=== PATIENT | male | born 1955 | race Caucasian/White ===

== ENCOUNTER 2019-10-25 08:50 | Outpatient (RCR) | payer BC, OTHER ==
[~2019-10-25] VITALS: Ht 186 cm; Wt 98.6 kg
[~2019-10-25 08:50] MED LIST: AMLO10TA7 PO; ASP325TEC PO; CLOP75TA PO; HYDR25TA4 PO; OLME40TA14 PO; OLME40TA18 PO; PNT40TEC PO; SIMV40TA2 PO; SIMV40TA25 PO
== END 2019-10-25 16:14 | disposition home or self-care (01) ==
LOC: PREOP 08:50
PROVIDERS: ATTEND Internal Medicine
DX: Z01.818 Encounter for other preprocedural examination (principal); Z11.59 Encounter for screening for other viral diseases
CPT/HCPCS: 87635

== ENCOUNTER 2019-10-29 09:23 | Day surgery (SDC) | payer BC, OTHER ==
--- NOTE | 2019-10-22 10:51 | HISTORY AND PHYSICAL ---
DATE OF SERVICE: COLONOSCOPY HISTORY AND PHYSICAL HISTORY: The patient is a 64-year-old white male seen for followup of hypertension and hyperlipidemia. He was due for screening colonoscopy as well. He is not aware of a family history of colon cancer, although his dad did have colon polyps. He reports that he has been feeling well. He has some gastritis sounding symptoms several months ago, but they resolved. He denied bright red blood per rectum or melena and has had no bowel habit change and denies any abdominal pain. He has had no nausea and continues to exercise and is maintaining a significant amount of weight loss over 40 pounds from his high. It is high several years ago. His ultimate goal is to get down to 200 pounds and currently weighing 217.8, down 1.2 pounds from office visit 2 months ago. He has a past history of hypertension and hyperlipidemia, significantly improved on weight loss. He has a past history of tobaccoism with 30 plus pack year smoking history, but quit 9 years ago. PHYSICAL EXAMINATION: GENERAL: Reveals a white male, appeared to be in no acute distress. VITAL SIGNS: Weight 217.8 pounds, blood pressure 120/70, heart rate 70 and regular. HEENT: Unremarkable. Mallampati II pharyngeal configuration. CHEST: Clear to auscultation. CARDIOVASCULAR: Revealed a regular rate and rhythm without murmur, S3 or S4. ABDOMEN: Soft, supple without mass, organomegaly or tenderness. EXTREMITIES: Reveal no cyanosis, clubbing or edema. RECTAL: Deferred at the time of colonoscopy set up for 10/29/2019. ASSESSMENT AND PLAN: 1. Hypertension, under good control aided by weight loss and smoking cessation. 2. Hyperlipidemia has been under good control on statin therapy. Last lipid panel 6 months ago revealed a total cholesterol of 142 and HDL of 34, triglyceride level of 139 and LDL of 84. He had a chemistry panel and PSA, which were unremarkable on 10/18/2019. The patient was set up for screening colonoscopy on 10/29/2019. Prep instructions with the Suprep kit were given and questions were answered. The patient is scheduled for followup in 6 months. We will obtain a repeat PSA and lipid panel at that time. Job ID: [id number] DocumentID: [id number] Dictated Date: 10/21/2019 16:13:17 Breakfast Manager Date: 10/21/2019 16:55:52 Dictated By: RAY MOSES MD
[~2019-10-29] VITALS: Ht 186 cm; Wt 98.6 kg
[2019-10-29] VITALS (14 sets, daily range): BP systolic 114–130; BP diastolic 60–70
[2019-10-29] MEDS ORDERED: D5 LR IV SOLUTION 1,000 ML IV STA (09:32)
[2019-10-29] MEDS ORDERED: fentaNYL INJECTION 100 MCG/2 ML AMP IVP ONE (09:45)
[2019-10-29] MEDS ORDERED: MIDAZOLAM 5 MG/5 ML (VERSED) VIAL IV PRN (09:45)
[2019-10-29] MEDS ORDERED: LIDOCAINE JELLY 2% 6 ML SYRINGE MM PRN (09:45)
--- OUTSIDE RECORDS SUMMARY | 2019-10-29 10:08 | XMS REPORT | Continuity of Care Document ---
Author Organization Unknown Address Unknown Phone Unavailable Allergies Active Description Code Type Severity Reaction Onset Reported/Identified Relationship to Patient Clinical Status Yes ENVIRONMENTAL ENVIRONMENTAL Unknown N/A 09/30/2010 Medications There is no data. Problems Date Dx Coded Attending Type Code Diagnosis Diagnosed By 05/15/1613 RAY MOSES MD Ot Z01.818 ENCOUNTER FOR OTHER PREPROCEDURAL EXAMIN 05/15/1613 RAY MOSES MD Ot Z11. 59 ENCOUNTER FOR SCREENING FOR OTHER VIRAL Procedures There is no data. Results Test Result Range Coronavirus SARS-CoV-2 SO 2018 - 0 13:15 Coronavirus Ab [Units/volume] in Serum Negative Negative Encounters ACCT No. Visit Date/Time Discharge Status Pt. Type Provider Facility Loc./Unit Complaint [id number] 10/25/2019 08:50:00 020 16:14:00 DIS Outpatient RAY MOSES MD [facility] PREOP COLONOSCOPY [id number] 07/27/2013 07:15:00 014 10:30:00 DIS Outpatient [id number] 07/22/2013 07:19:00 014 23:59:59 CLS Outpatient [id number] 10/29/2019 10:30:00 P EN Preadmit RAY MOSES MD [facility] ENDO SCREENING
[2019-10-29] MEDS ORDERED: fentaNYL INJECTION 100 MCG/2 ML AMP ONE (10:32)
[2019-10-29] MEDS ORDERED: LIDOCAINE JELLY 2% 6 ML SYRINGE ONE (10:32)
[2019-10-29] MEDS ORDERED: MIDAZOLAM 5 MG/5 ML (VERSED) VIAL ONE (10:32)
--- NOTE | 2019-10-29 10:41 | Pre-Op Note & Conscious Sedat ---
Pre-Operative Progress Note H&P Reviewed The H&P was reviewed, patient examined and no changes noted. Date H&P Reviewed: October 29, 2019 Time H&P Reviewed: 10:41 Conscious Sedation Pre-Proced ASA Score 2 For ASA 3 and 4: Consider anesthesia and medical clearance. Also, for patients with a history of failed moderate sedation consider anesthesia. Airway Lungs Heart ASA score ASA 1: a normal healthy patient ASA 2: a patient with a mild systemic disease (mid diabetes, controlled hypertension, obesity ASA 3: a patient with a severe systemic disease that limits activity (angina, COPD, prior Myocardial infarction) ASA 4: a patient with an incapacitating disease that is a constant threat to life (CHF, renal failure) ASA 5: a moribund patient not expected to survive 24 hrs. (ruptured aneurysm) ASA 6: a declared brain- patient whose organs are being harvested. For emergent operations, add the letter E after the classification Mallampati Classification Grade 2 Sedation Plan Analgesia, Amnesia, Plan communicated to team members, Discussed options with patient/fam, Discussed risks with patient/fam The patient is an appropriate candidate to undergo the planned procedure, sedation, and anesthesia. The patient immediately re-assessed prior to indication. RAY MOSES MD October 29, 2019 10:41
[2019-10-29] MEDS ORDERED: SIMETHICONE 40 MG/0.6 ML (MYLICON DROPS) 30 ML BTL ONE (10:58)
[2019-10-29] MEDS ORDERED: SIMETHICONE 40 MG/0.6 ML (MYLICON DROPS) 30 ML BTL PO PRN (11:15)
--- NOTE | 2019-10-29 16:37 | OPERATIVE REPORT ---
DATE OF SERVICE: COLONOSCOPY SUMMARY INDICATION FOR THE PROCEDURE: Screening colonoscopy. DESCRIPTION OF PROCEDURE: The patient was placed in the left lateral decubitus position. Prior to undergoing colonoscopy, digital rectal evaluation was performed. Anal sphincter tone was normal and the perianal reflexes intact. Prostate is mildly enlarged, anodular and nontender to digital inspection. No other abnormalities noted on digital inspection of anal canal or distal rectal vault. The colonoscope was then inserted into the rectum and under direct visualization advanced to the cecum. The cecum was identified by identification of ileocecal valve and cecal strap. Photographic documentation was obtained. Quality of prep was good. The patient tolerated the procedure well. FINDINGS: There was no evidence for internal or external hemorrhoids. Now present in the mid and proximal rectum are several 1 to 2 mm hyperplastic appearing polyps. Photographs were obtained. Two of the larger polyps 3 mm in size were removed. The remainder were left, approximately 5, all in the 1-2 mm range. The sigmoid colon, descending colon, transverse colon, ascending colon and cecum were unremarkable. ASSESSMENT: Several small hyperplastic appearing polyps were removed via hot forceps today. This was an otherwise normal colonoscopy to the cecum. The patient is not aware of any family history for colon cancer. We would just advocate consideration for repeat screening colonoscopy in 10 years provided his health remains good. Prostate was mildly enlarged, anodular on digital inspection. Job ID: [id number] DocumentID: [id number] Dictated Date: 10/29/2019 11:37:09 Senior Capital [employer] Specialist Date: 10/29/2019 16:36:21 Dictated By: RAY MOSES MD
== END 2019-10-29 12:05 | disposition home or self-care (01) ==
LOC: ENDO 09:23
PROVIDERS: ATTEND Internal Medicine
DX: Z12.11 Encounter for screening for malignant neoplasm of colon (principal); K62.1 Rectal polyp; N40.0 Benign prostatic hyperplasia without lower urinary tract symptoms; I10 Essential (primary) hypertension; E78.5 Hyperlipidemia, unspecified; Z83.71 Family history of colonic polyps; Z87.891 Personal history of nicotine dependence; Z79.899 Other long term (current) drug therapy